=== PATIENT | male | born 1970 | race Caucasian/White ===

== ENCOUNTER 2018-03-14 16:17 | Emergency (ER) | payer OTHER ==
[2018-03-14] MEDS ORDERED: NALOXONE (0.4 MG/ML) INJ (16:47)
[2018-03-14] MEDS ORDERED: ONDANSETRON 4 MG INJ (17:08)
[2018-03-14] MEDS: NALOXONE (0.4 MG/ML) INJ IV (17:52)
[2018-03-14] MEDS: ONDANSETRON 4 MG INJ IV (17:55)
[2018-03-14] MEDS: SOD CHLORIDE 0.9% 1,000 ML IV (17:56)
== END 2018-03-14 19:05 | disposition home or self-care (01) ==
LOC: E/R 16:17
DX: T40.1X1A Poisoning by heroin, accidental (unintentional), initial encounter (principal)
CPT/HCPCS: 93005; 99284-25